=== PATIENT | female | born 1950 | race Caucasian/White ===

== ENCOUNTER 2024-06-02 18:04 | Emergency (ER) | payer MEDICAID, SELFPAY ==
[2024-06-02 18:08] VITALS: BP 177/75; PULSE 73; RESP 22; TEMP 36.9; O2SAT 96; BMI 37.1
[2024-06-02 18:32] VITALS: PULSE 78; O2SAT 96; BMI 47.6
--- NOTE | 2024-06-02 18:43 | PD.EDEXREM ---
ED Extremity Problem RME/HPI General Chief complaint: Altered Mental Status Stated complaint: Altered Level Of Consciousness/Unable To Walk Time Seen by Provider: 06/02/24 18:29 Source: patient and family Arrival date/time: 06/02/24 18:04 Mode of arrival: ambulatory Limitations: no limitations RME / HPI RME / HPI Narrative: DR TURCIOS MAIN ED EVALUATION: 74-year-old female patient with a history of hypertension and diabetes, lives at home with family, complaining of bilateral foot pain described as burning. States she has been unable to stand secondary to the pain. She has not noticed any redness or sores. No injuries or other wounds. States she thinks she has some history of neuropathy due to diabetes but is not on any medication. Goes to [facility]. Related Data Home Medications ?Medication ?Instructions ?Recorded ?Confirmed oxybutynin chloride 5 mg tablet 5 mg PO BID 04/01/18 03/25/21 allopurinol 100 mg tablet 100 mg PO QDAY 03/25/21 03/25/21 sitagliptin phosphate 100 mg 100 mg PO QDAY 03/25/21 03/25/21 tablet (Januvia) Previous Rx's ?Medication ?Instructions ?Recorded albuterol sulfate 90 mcg/actuation 2 puff INH PRN PRN shortness of 03/28/21 aerosol inhaler (Ventolin HFA) breath or wheezing #6.7 grams aspirin 81 mg chewable tablet 81 mg PO QDAY #30 tabs 03/28/21 atorvastatin 20 mg tablet 40 mg (2 x 20 mg) PO HS #30 tabs 03/28/21 cefpodoxime 100 mg tablet 100 mg PO BID #8 tabs 03/28/21 insulin glargine 100 unit/mL 15 unit (0.15 mL) subcut QDAY #10 03/28/21 subcutaneous solution (Lantus mL U-100 Insulin) metoprolol succinate 25 mg 25 mg PO QDAY #30 tabs 03/28/21 tablet,extended release 24 hr sulfamethoxazole 800 1 tab PO BID #14 tabs 06/02/24 mg-trimethoprim 160 mg tablet (Bactrim DS) Allergies Allergy/AdvReac Type Severity Reaction Status Date / Time tramadol Allergy Severe Confusion Verified 08/19/23 11:45 Review of Systems Review of Systems Systems Reviewed: All systems reviewed, normal except as documented Past Medical History Past Medical History NEUROLOGIC: Positive Peripheral Neuropathy; Negative Neurological Disorders or Seizures CARDIAC: Positive Cardiac Disorders, Hypercholesterolemia and Hypertension; Negative Congestive Heart Failure RESPIRATORY: Negative Chronic Obstructive Pulmonary Disease (COPD) GASTROINTESTINAL: Positive Gastrointestinal Disorders, Gall Bladder Disease and Obesity GENITOURINARY: Negative Genitourinary Disorders (decreased kidney function) or Renal Disease REPRODUCTIVE: Positive Previous Pregnancies MUSCULOSKELETAL: Negative Musculoskeletal Disorders ENDOCRINE: Positive Endocrine Disorders and Diabetes Mellitus Type 2; Negative Diabetes Mellitus Type 1 HEMATOLOGIC: Negative Blood Disorders or Anemia OTHER HISTORY: Negative Autoimmune Disease, Blood Transfusions, Blood Transfusion Reaction or Anesthesia Reactions Family History FAMILY HISTORY: Positive Family Cardiac Disorders, Family Cancer and Family Surgery; Negative Family Psychiatric Problems, Family Respiratory Disorders, Family Gastrointestinal Problems or Family Anesthesia Reaction Surgical History SURGICAL: Positive Ear Surgery, Tonsillectomy, Hysterectomy and Tubal Ligation Social History SMOKING STATUS: Former smoker SUBSTANCE USE: does not use ED Exam Narrative Physical exam: GENERAL APPEARANCE: alert and oriented x 4, well-developed, well-nourished, no acute distress VITALS: All vitals were reviewed and the pulse ox is 96% on room air, which is normal according to my interpretation. HEENT: Normocephalic, atraumatic; pupils equal, round, reactive to light; EOMI; mucous membranes pink, moist; oropharynx clear NECK: Supple LUNGS: CTABL; no wheezes, no rales, no rhonchi HEART: Regular rate, regular rhythm; normal S1, S2; no murmurs ABDOMEN: non distended; normal BS; soft, no tenderness, no guarding, no rebound; no masses, no organomegaly, no hernia BACK: no CVA tenderness EXTREMITIES: atraumatic; no edema NEUROLOGIC: awake; alert and oriented x4; cranial nerves II-XII grossly intact; no focal sensory or motor deficits PSYCHIATRIC: appropriate mood and affect SKIN: warm, dry, normal color; no rashes General Limitations: Present no limitations Course Quality Measures none Orders Category Date Time Status A1C [Glycohemoglobin w (eAG)] Stat Lab 06/02/24 19:02 Completed CBC Stat Lab 06/02/24 19:47 Completed CMP [Comprehensive Metabolic Panel] Stat Lab 06/02/24 19:47 Completed Free T4 (Free Thyroxine) Stat Lab 06/02/24 20:45 Completed Protein electrophoresis,serum* Stat Lab 06/02/24 20:45 Received TSH [Thyroid Stimulating Hormone] Stat Lab 06/02/24 20:45 Completed Urinalysis, C/S if Indicated Stat Lab 06/02/24 20:52 Completed Urine Culture Stat Lab 06/02/24 20:52 Received Vitamin B12 Stat Lab 06/02/24 20:45 Completed Acetaminophen Tab [Tylenol ES Tab] Med 06/02/24 20:55 Discontinued 1,000 mg PO X1 ONE Gabapentin [Neurontin] Med 06/02/24 20:56 Discontinued 300 mg PO X1 ONE Gabapentin [Neurontin] Med 06/02/24 21:05 Discontinued 300 mg PO X1 ONE Trimethoprim/Sulfa 160/800 Ds [Bactrim Ds] Med 06/02/24 21:48 Discontinued 1 tab PO X1 ONE Vital Signs Vital signs: Vital Signs Temperature 98.5 F 06/02/24 18:08 Pulse Rate 73 06/02/24 18:08 Respiratory Rate 22 H 06/02/24 18:08 Blood Pressure 177/75 H 06/02/24 18:08 Pulse Oximetry (%) 96 06/02/24 18:08 Oxygen Delivery Method Room Air 06/02/24 18:08 Extremity Problem MDM Narrative MDM Narrative:: Scribe Attestation: Saw Shelley am scribing for and in the presence of Dr. Turcios. Provider Notation: Although this document has been carefully reviewed, there may still be some phonetic and other typographical errors. These errors are purely grammatical due to imperfections in the software program and should not be construed in any way to compromise the substance of the patient's medical care during this visit. Patient data External records reviewed:: [facility] previous records Clinical information provided by:: patient Social determinants that could affect healthcare access:: none Patient has the following chronic illnesses:: Type II DM, HTN, Dyslipidemia, CKD stage IIIb How is presenting disease/condition affected by chronic disease/condition?: uneffected by Evaluation data The following diagnostics were reviewed and interpreted by me:: lab results Lab and/or radiology exams considered but not ordered:: None Interpretation Summary: UA positive for leukocyte esterase, less than 1 squamous epithelial cell. Interpreted as UTI. Reviewed previous urine culture results 09/08/2021. Mixed erin. Patient administered Bactrim DS p.o. Medications / Prescriptions Medications or Prescriptions considered but not ordered:: None Medication administrations:: Medication Administration History Discontinued Medications Acetaminophen (Acetaminophen 500 Mg Tablet) 1,000 mg PO X1 ONE Stop: 06/02/24 20:56 Last Admin: 06/02/24 21:13 Dose: 1,000 mg Documented By: JOSHUA Gabapentin (Gabapentin 300 Mg Capsule) 300 mg PO X1 ONE Stop: 06/02/24 20:57 Last Admin: 06/02/24 21:15 Dose: 300 mg Documented By: JOSHUA Comments: unable to scan meds due to opening packet before scanning. verified with Jayant TERAN. Gabapentin (Gabapentin 300 Mg Capsule) 300 mg PO X1 ONE Stop: 06/02/24 21:06 Last Admin: 06/02/24 21:08 Dose: Not Given Documented By: MILAGROS Non-Admin Reason: Duplicate Medication on eMAR Trimethoprim/Sulfamethoxazole (Trimethoprim/Sulfa 160/800 Ds Tablet) 1 tab PO X1 ONE Stop: 06/02/24 21:49 Last Admin: 06/02/24 22:00 Dose: 1 tab Documented By: JOSHUA As above, if any Consultations Consultation(s) initiated? (list below): No Diagnosis Extremity Problem Differential Diagnosis: cellulitis and other (peripheral neuropathy, myelopathy, radiculopathy, polyneuropathy) Most likely diagnosis given after review of the tests above:: Peripheral neuropathy Admission Indicated Admission indicated?: not indicated Admission Request Was there a request for admission?: No Disposition Plan Disposition Plan: Discharge Discharge Attestation Discharge Attestation: The patient and all family members were given an opportunity to ask questions and understood the discharge instructions. Discharge instructions specifically effects, indications for sooner follow up or return to the emergency department, and the expected course of current diagnosis. Patient condition: Stable Discharge Plan Prescriptions/Referrals Prescriptions/Med Rec: New sulfamethoxazole-trimethoprim [Bactrim DS] 800-160 mg tablet 1 tab PO BID Qty: 14 0RF No Action allopurinol 100 mg tablet 100 mg PO QDAY Januvia 100 mg tablet 100 mg PO QDAY atorvastatin 20 mg Tablet 40 mg PO HS Qty: 30 0RF Lantus U-100 Insulin 100 unit/mL Solution 15 unit subcut QDAY Qty: 10 0RF aspirin 81 mg Tablet,Chewable 81 mg PO QDAY Qty: 30 0RF metoprolol succinate 25 mg Tablet Extended Release 24 Hr 25 mg PO QDAY Qty: 30 0RF albuterol sulfate [Ventolin HFA] 90 mcg/actuation Hfa Aerosol Inhaler 2 puff INH PRN PRN (Reason: shortness of breath or wheezing) Qty: 6.7 0RF cefpodoxime 100 mg tablet 100 mg PO BID Qty: 8 0RF Rx Instructions: must administer with a meal/food oxybutynin chloride 5 mg Tablet 5 mg PO BID Referrals: No Primary/Family,Physician [Primary Care Provider] - In 1 week Problem List Clinical Impression: Peripheral neuropathy, Acute UTI Patient/Caregiver Discharge Instructions Print Language: Lithuanian
--- NOTE | 2024-06-02 18:53 | PC.NURSE ---
ASSUMED CARE AT THIS TIME, PT REPORTS SHE CAME IN FOR HER FEET, THEY HURT AND THEY HAVE BEEN SWOLLEN FOR 2 WEEKS. PT HAS EDEMA B/L, YELLS DON'T TOUCH THEM, THEY HURT SO BAD . DENIES ANY HF, SOB. pT GCS 15, CALL FELIX IN REACH.
[2024-06-02 19:09] VITALS: BP 166/76; PULSE 72; RESP 22; O2SAT 97
[2024-06-02 19:25] LABS: Glucose Estimated Average 151 mg/dL (80-131); Hemoglobin A1C 6.9 % Hgb (4.8-6.0)
[2024-06-02 19:59] LABS: Basophils # (Auto) 0.1 Thou/mm3 (0.0-0.2); Basophils % (Auto) 0 % (0-2.5); Eosinophils # (Auto) 0.1 Thou/mm3 (0.0-0.5); Eosinophils % (Auto) 1 % (0-10); Hematocrit 32.6 % (36.0-46.0); Hemoglobin 10.8 g/dL (12.0-16.0); Immature Granulocytes % (Auto) 1 % (0-0); Immature Granulocytes Auto 0.07 Thou/mm3 (0.00-0.00); Lymphocytes # (Auto) 2.4 Thou/mm3 (1.0-4.8); Lymphocytes % (Auto) 16 % (10-50); Mean Corpuscular HGB Conc 33.1 g/dl (31.0-37.0); Mean Corpuscular Hemoglobin 28.9 pg (25.0-35.0); Mean Corpuscular Volume 87 fL (80-100); Monocytes # (Auto) 0.9 Thou/mm3 (0.0-0.8); Monocytes % (Auto) 6 % (0-12); Neutrophils # (Auto) 11.9 Thou/mm3 (1.8-7.7); Neutrophils % (Auto) 77 % (37-80); Nucleated Red Blood Cell % 0 /100 WBC (0); Platelet Count 274 Thou/mm3 (140-440); RDW Standard Deviation 41.9 fL (36.4-46.3); Red Blood Count 3.74 Miln/mm3 (4.00-5.20); White Blood Count 15.5 Thou/mm3 (3.6-11.0)
[2024-06-02 20:18] LABS: Alanine Aminotransferase 12 U/L (10-49); Albumin, Serum 4.6 gm/dL (3.4-4.8); Albumin/Globulin Ratio 1.4 (1.2-2.2); Alkaline Phosphatase 107 U/L (46-116); Anion Gap 8 (7-16); Aspartate Amino Transferase 19 U/L (0-34); BUN/Creatinine Ratio 19 Ratio (12-20); Bilirubin,Total 0.3 mg/dL (0.3-1.2); Blood Urea Nitrogen 27 mg/dL (9-23); Calcium 9.4 mg/dL (8.3-10.6); Calcium (Corrected) 9.4 mg/dL (8.5-10.1); Carbon Dioxide 28.1 mMol/L (20.0-31.0); Chloride 103 mMol/L (98-107); Creatinine (Component) 1.4 mg/dL (0.6-1.3); Estimated Creatinine Clearance 50.3 mL/min (>60); Globulin 3.2 gm/dL (2.3-3.5); Glucose 287 mg/dL (74-106); Osmolality,Calculated 292 (275-295); Potassium 3.7 mMol/L (3.4-5.1); Sodium 139 mMol/L (136-145); Total Protein 7.8 gm/dL (5.7-8.2); eGFR 40 See Note
[2024-06-02] MEDS: ACETAMINOPHEN 500 MG TABLET 1000 MG PO (21:13)
[2024-06-02] MEDS: GABAPENTIN 300 MG CAPSULE PO (21:15)
[2024-06-02 21:20] LABS: Collection Type, Urine Clean Catch
[2024-06-02 21:26] LABS: Free T4 (Free Thyroxine) 1.37 ng/dL (0.89-1.76); Thyroid Stimulating Hormone 3.39 uIU/mL (0.55-4.78)
[2024-06-02 21:39] LABS: Bacteria,Urine 2+; Bilirubin,Urine Negative (Negative); Blood,Urine Trace (Negative); Clarity,Urine Turbid (Clear/Hazy); Color,Urine Yellow (Lt Yel-Yel); Culture Indicated,Urine Yes; Glucose, Urine Negative (Negative); Ketones,Urine Negative (Negative); Leukocyte Esterase,Urine Positive (Negative); Nitrite,Urine Negative (Negative); PH,Urine 6.5 (5.0-7.0); Protein,Urine 1+ (Neg - Trace); RBC,Urine 3 /hpf (0-3); Specific Gravity,Urine 1.018 (1.001-1.035); Squamous Epithelial Cell,Urine < 1 /hpf (0-5); WBC,Urine 210 /hpf (0-5)
[2024-06-02] MEDS: TRIMETHOPRIM/SULFA 160/800 DS TABLET 1 TAB PO (22:00)
[2024-06-02 22:01] VITALS: BP 140/65; PULSE 77; RESP 17; TEMP 37.1; O2SAT 97
[2024-06-02 22:21] LABS: Vitamin B12 502 pg/mL (211-911)
[2024-06-02 23:03] VITALS: BP 142/60; PULSE 81; RESP 20; TEMP 37.8; O2SAT 97
[2024-06-08 23:34] LABS: Albumin 3.3 g/dL (3.8-4.8); Alpha-1-Globulin 0.6 g/dL (0.2-0.3); Alpha-2-Globulin 1.2 g/dL (0.5-0.9); Beta-1-Globulin 0.4 g/dL (0.4-0.6); Beta-2-globulin 0.5 g/dL (0.2-0.5); Gamma Globulin 1.1 g/dL (0.8-1.7)
[2024-06-09 06:51] LABS: Protein, total, serum 7.2 g/dL (6.1-8.1)
== END 2024-06-02 23:04 | disposition home or self-care (01) ==
PROVIDERS: Emergency Provider Emergency Medicine
DX: N39.0 Urinary tract infection, site not specified (principal); E11.42 Type 2 diabetes mellitus with diabetic polyneuropathy; Z79.4 Long term (current) use of insulin
CPT/HCPCS: 36415; 80053; 81001; 82607; 83036; 84155; 84165; 84439; 84443; 85025; 87077; 87086; 87186; 99283; A9270

== ENCOUNTER → 2025-06-21 | Outpatient (CLI) | payer MEDICARE, MEDICAID, SELFPAY ==
--- NOTE | 2025-06-21 14:00 | XR_ITS ---
Examination: Breast ultrasound, unilateral, right Date and time of exam: June 21, 2025, 1430 hours INDICATIONS: Palpable lump inner right breast noticed beginning 2 months ago, family history of breast cancer Technique: Real-time marie scale ultrasonographic imaging performed right breast including all 4 quadrants as well as nipple retroareolar and axillary region. Findings: 3:00 nodule lobular margins 10 x 9 mm IMPRESSION: BI-RADS Category 3: Probably benign findings Recommend 1 additional 6-month right breast sonogram follow-up to document stability of 3:00 nodule described above
--- NOTE | 2025-06-21 14:30 | XR_ITS ---
Examination: Diagnostic digital mammography, unilateral, right Computer aided detection 3-D breast Tomosynthesis, unilateral Date and time of exam: June 21, 2025, 1448 hours INDICATIONS: Right breast lump noticed beginning 4 months ago Technique: Nonmagnified MLO, CC views of the right breast have been obtained, reconstructed from 3-D Tomosynthesis images. R2 computer aided detection program utilized for evaluation of suspicious masses and/or abnormal calcifications. 3-D Tomosynthesis images obtained. Findings: Scattered areas of fibroglandular density. Benign calcifications. 5 mm nodule upper outer right breast 5 mm nodule inner lower right breast Impression: BI-RADS category 0: Incomplete: Need additional imaging evaluation Recommend follow-up spot tomographic views upper outer quadrant right breast lower inner quadrant right breast, right breast sonography to assess the 2 nodules described above
== END | disposition home or self-care (01) ==
PROVIDERS: Referring Provider Nurse Practitioner Family; Visit Provider Nurse Practitioner Family
DX: N63.12 Unspecified lump in the right breast, upper inner quadrant (principal); N63.11 Unspecified lump in the right breast, upper outer quadrant; N63.15 Unspecified lump in the right breast, overlapping quadrants; R92.8 Other abnormal and inconclusive findings on diagnostic imaging of breast
CPT/HCPCS: 76641; 77061; 77065; G0279